=== PATIENT | female | born 1990 | race African-American/Black ===

== ENCOUNTER 2018-01-22 09:00 | Outpatient (RCR) | payer OTHER, SELFPAY ==
--- NOTE | 2018-01-22 09:00 | BH.SGPN.GN ---
Behaviors/Verbalizations/Mental Status: []Client alert and oriented, casual dress. Eye contact good. Motor activity appropriate. Speech soft. Affect flat, mood anxious, dysthymic. Thoughts linear, logical, no signs of hallucinations or delusions. Client completed the DSM-5 cross-cutting measure and did not complete the daily symptom tracker. No risks noted for suicidal ideation, plan, or intent at this time. Client Response/Progress/Benefit: []Client responded well to session, receptive to emotional support and encouragement from peers. Client reports feeling ?overwhelmed? today as it is her first session in IOP. Client shared she has been struggling with mental health since age 14. Client reported she has been diagnosed with PTSD, depression, and borderline personality disorder. Client identified her goals for IOP as learning how to ?not be like this...I want to be able to function.? Client reported she is currently depressed, drinking, and having a hard time taking care of her self and her son. Client received supportive statements from peers which she appeared to benefit from. Client to start IOP to prevent decompensation and increase mood stability.
--- NOTE | 2018-01-22 09:30 | BH.COMM ---
Communication Note - Communication with Client Communication Note: Met with pt to complete intial paperwork for IOP level of care. No significant changes since preadmission screening. Denies any suicidal ideations, plan, or intent. No mai or psychosis noted. No risks or concerns noted.
--- NOTE | 2018-01-22 10:12 | BH.SGPN.GN ---
Behaviors/Verbalizations/Mental Status: []Client alert and oriented, casually dressed and groomed. Eye contact good. Motor activity appropriate, restless. Speech within normal limits. Affect congruent, mood agitated, dysthymic. Thoughts linear, logical, no signs of hallucinations or delusions. Client Response/Progress/Benefit: []Pt was an active participant in discussion and activity, however struggled with remaining on topic and requiring redirection on occasion. Group worked together to come up with common negative forces in their lives which can hold them back from growth. Negative forces included: mental illness, negative thoughts, toxic people, and too many responsibilities. Group then worked together to identify common positive forces which help us grow. These included: Healthy coping skills, positive support, self-care, positive self-talk and asking for help/IOP tx. Pt reported agreeing with other?s definitions of personal growth. Shared that growth is something she feels she has struggled with due to limited supports. Pt was attentive during psychoeducation on the importance of utilizing many aspects of positive forces to help one grow. Benefited from group with increased insight and awareness on the impact of negative and positive forces on mental wellness. Progress limited due t pt inconsistent attentiveness and difficulties in applying materials outside tx environment. Recommended continued tx to reduce mental health sx severity, increase positive change behaviors, and prevent decompensation. Narrative Note: []
--- NOTE | 2018-01-24 08:39 | BH.MTP ---
[facility] - Patient Information Program Physician:: Genie Donahue Primary Therapist:: MALINDA Berrios - Psychiatric Diagnoses Psychiatric Diagnoses:: Major depressive disorder recurrent severe F 33.2. Anxiety unspecified. PTSD. Borderline personality disorder. Alcohol use disorder. Cannabis use. Nicotine use Diagnosis Code(s):: F 33.2 - Estimated LOS Estimated LOS (in weeks):: 6
--- NOTE | 2018-01-24 10:18 | BH.SGPN.GN ---
Behaviors/Verbalizations/Mental Status: []Client alert and oriented, dress casual. Eye contact fair. Motor activity slowed- head on the table at times. Speech within normal limits. Affect flat, mood dysthymic, irritable. Thoughts linear, logical, no signs of hallucinations or delusions. Client Response/Progress/Benefit: []Client responded well to session, quiet, but providing insight at times. Client appeared to connect with the quote sharing, ?sometimes we think we say things to people, but it doesn?t come out that way.? Client discussed the different types of communication styles and helped the group identify pros and cons of each. Client reports she often uses aggressive or passive aggressive communication in her relationships which gets her needs met in the moment, but negatively impact client later. Client appeared to benefit from gaining insight to how her communication style impacts mental health. Client to continue IOP to prevent decompensation and increase mood stability.
--- NOTE | 2018-01-24 11:20 | BH.SGPN.GN ---
Behaviors/Verbalizations/Mental Status: []Client alert and oriented, casually dressed. Eye contact good. Motor activity appropriate. Speech within normal limits. Affect congruent- appearing irritated as shown by her eye contact towards a peer, mood irritated and euthymic. Thoughts linear, logical, no signs of hallucinations or delusions. Client Response/Progress/Benefit: [] client responded well to session, volunteering to participate. Client used assertive communication in the activity by asking clarifying questions and voicing barriers. Client stated the activity reminded client of her daily life and how difficult it is to communicate when one does not have all the information. Client able to manage emotions when a peer was directing instigating comments towards client. Client helped the group identify strategies to improve communication. Client?s goal for the week is to ?not shut down or freak out? as a way to improve communication. Client appeared to benefit from practicing assertive communication and identifying a goal.
--- NOTE | 2018-01-24 14:55 | BH.MDN ---
Multi-Disciplinary Note - Note 45-min Individual Time Started:: 12:30 Date: 01/24/18 Purpose of session/treatment goals addressed:: The purpose of this session was to follow-up with Client regarding concerns presented during process session. Another purpose was to assess for current risk and lethality as well as establish a Safety Plan until Monday when Client is to return to IOP group. Eye Contact:: Good, Other - tearful throughout discussion Motor Activity:: Appropriate Appearance:: Casual Speech:: Appropriate Mood:: Anxious, Depressed - remorseful Affect:: Congruent Thoughts:: Linear, Logical, No evidence of hallucinations/delusions noted Staff Interventions:: Therapist asked open-ended questions to elicit additional information regarding concerns and unhealthy behaviors that Client indicated engaging in the previous night. Therapist used reflective listening and empathic statements to work with Client on processing and identifying potential triggers, contributing factors, and consequences of Client unhealthy coping on mental health. Provided psychoeducation regarding alcohol use and management of mental health sx. Used motivational interviewing to identify current barriers and promote change talk. Assessed lethality and developed plan to maintain safety. Client Response:: Client receptive of meeting with this therapist following IOP group on this date. She was willing and open to discussing current thoughts and concerns regarding the events client indicated taking place previous night. Client discussed having awoken this morning in a really good mood until being confronted by her significant other whom indicated client had engaged in several high risk behaviors on the previous night. Client denied any recollection of the events as described; however, indicated not being surprised she had engaged in such high risk behaviors and tearfully expressed remorse regarding her actions. Client went on to describe remembering that she had been drinking from a box of wine with her significant other as he had just moved back in the day before. She discussed knowing she had drank to the point of blacking out and remembers asking him to cut me off from drinking at various points but not listening when he had done so. Client reports being told that she had become distraught and began expressing thoughts of being a burden and wanting to put everyone out of their misery which resulted in client consuming a bottle of pills. Upon further assessment client identified the pills as being her Prozac medication and was not certain as to how many pills she had actually consumed. Client denies knowing if medication consumption had been associated with suicide intent at the time of ingestion. Client further explained that her significant other had ensured that client emptied contents of her stomach by puking immediately following consumption. Client denies experiencing any physical symptoms associated with medication consumption at present, outside of a sore throat. Therapist consulted with program nurse regarding excess medication use and CLient encouraged to seek medical care to follow-up and ensure medically cleared. Client denies willingness to do so at this time; however, was agreeable to seek medical care at the nearest E.R[facility] should she experience any symptoms throughout the day. CLient went on to report a hx of previous suicide attempts and increased ideation while under the influence of alcohol and often does not remember her behaviors the next day. Client indicates she does not actually want to and denies any active suicidal idenation, plan, or intent as of this date, 01/24/18 She descibes her son and significant other as largest protective factors, indicating I can't do that, I have my son. Client further expressed an ability to maintain safety at this time and indicates that her significant other will be with her to ensure safety as well. CLient receptive of removing all potentially lethal materials in the house and shared that she had removed all alcohol from her home this morning. She was agreeable to having her significant other remove any excess medications and dispose of the at the local police dept. Client to follow-up with this therapist upon doing so on this date and is agreeable to a safety and wellness check should she not follow-up by 3pm on this date. Client and therapist discussed impact of substance use on ability to manage mental health sx and maintain safety. Client reports understanding that her alcohol consumption has been an ongoing problem and discussed beliefs that it has been further exacerbating symptoms of depression as well as ability to function at baseline. Client reports a desire to quit drinking and expressed wanting to set a positive example for her son by maintaining sobriety. Client worked with therapist on discussing potential consequences for her own health and that of her family if she does not deal with her current use. Therapist further assessed extent of client current consumption and reviewed with client risks of withdrawl if she does not detox safely. CLient reports understanding of risks associated however declined any referral resources for inpatient detox and addiction treatment. CLient open to completing a sobriety and safety plan until next scheduled session on Monday. Client reports plans to communicate current safety plan and spend the remainder of the day with her significant other. She shared that she plans to spend time painting and completing a [employer] project that she has been working on. Client discussed the evening as her highest risk period for drinking and shared plans to spend time with significant other as well as work on specific crafts and give her keys to significant other to prevet purchasing any alcohol. She is aware of and willing to utilize the local crisis resources available should she no longer feel able to maintain safety. Risks/Concerns:: Client describes having a recent suicide gesture previous night as she indicates consuming large amounts of alcohol and taking an undetermined amount of Prozac medication. Client reports not knowing if she had been actively suicidal at the time but has a history of suicide attempts and ideation when under the influence. Client urged to seek medical treatment to ensure no adverse side effects to taking assess medication however declined at this time. Reports willingness to seek medical attention should she experience any increase in physical symptoms.. Denies current suicidal thoughts, plan or intention to date, 01/24/2018. Client additionally given referral information for inpatient alcohol addiction and detox sessions. Client additionally denies need for such at this time and indicates wanting to work on sobriety on an outpatient basis. Client reports willingness to seek medical treatment should she experience any withdrawal symptoms and further indicates an understanding of the risks associated with alcohol withdrawal. Client indicates an ability to maintain safety at this time and is aware of and willing to utilize local crisis resources available. Client reports willingness to remove all excess medication in the home and follow-up with this therapist upon doing so. Therapist will continue to assess lethality to ensure pt can maintain safety. Progress Toward Goals/Plan:: No progress observed given this is client's second day in IOP. Session focused on identifying risks, discussing motivations to change, assessing for lethality, and creating safety plan. Client to continue IOP treatment at this time and will be monitored for ongoing risk and safety to continued to determine appropriate level of care. Time Stopped:: 13:16
--- NOTE | 2018-01-24 17:44 | BH.COMM ---
Communication Note - Communication with Client Communication Note: Client called to report that she had followed through with plan to remove all excess medication from her home. She indicated that her significant other had taken them to the local police dept. for proper displosal. Client again ensures ability to maintain safety and denies any active suicidal ideation, plan, or intent. Client to follow-up tomorrow morning to ensure safety and discuss review safety plan.
--- NOTE | 2018-01-25 14:40 | BH.COMM_ITS ---
Communication Note - Communication with Client Communication Note: Client called this therapist to check-in and review her safety plan as well as discuss strategies used to maintain safety and sobriety previous night. CLient reports that following her plan to communicate with her significant other (s/o) what she had discussed during session on previous date as well as using healthy distractions to keep her mind off of drinking had been most helpful. CLient indicated that she had gone to the [employer] with her s/o to celebrate one day sober which had helped client to continue to feel motivated to make progress. Client further indicated that she and her s/o had met with her individual outpatient therapist to begin developing a plan for improving their ability to communicate and for client to continue to make progress in better managing her mental health symptoms as well as maintaining sobriety. CLient denies active si, plan, or intent as of 01/25/17, reports an ability to continue to maintain safety, and is future oriented as she plans to attend IOP group tomorrow as well as has plans to go miniature golfing with afterwards. Client to meet with program psychiatrist on following date, 01/26/18
--- NOTE | 2018-01-26 09:05 | BH.SGPN.GN ---
Behaviors/Verbalizations/Mental Status: Client maintained positive and consistent eye contact throughout. She was casually and comfortably dressed-wearing lounge type clothing, appropriate grooming, motor activity WNL slight restlessness AEB readjusting in seat and fidgeting with items in her hands, speech normal rate and tone, mood euthymic and anxious, affect congruent with mood, thoughts linear and logical some evidence of ruminative nature regarding maintaining sobriety and relationship with significant other, no evidence of delusions or hallucinations. Therapist reviewed client?s symptom tracker to assess for intensity of mental health symptoms and identify risk for suicide. Minimal sign of suicidal ideation (05/05), with no plan, and minimal intent (05/05) to date. Individual therapist will reassess risk and safety plan for weekend following group on this date. Client Response/Progress/Benefit: Client receptive of session and was engaged throughout. She did well to openly share her own thoughts and feelings regarding current progress and adjustment to the group, as well as provide positive feedback to fellow participants. Client benefitted from reflecting upon ways she was able to remain sober since last attending group and indicated that identifying with other group members who are successfully maintaining sobriety was most beneficial. Client further expressed that taking the time to seek help and support has been a very positive and important step in her recovery as client was encouraged to discuss her needs and concerns with her significant other as well as create a concrete plan to use healthy distraction and prevent from being in a toxic environment. Recommended continued IOP tx to prevent decompensation and promote ongoing sobriety. Narrative Note: []
--- NOTE | 2018-01-26 10:50 | BH.NA ---
Physical Data - Vital Signs Temperature: 98.0 F Pulse Rate: 76 Respiratory Rate: 14 Blood Pressure: 116/70 - Height/Weight Height: 1.47 m Weight:: 58.967 kg Weight in Pounds: 130.0 lbs Current Medication Compliance - Medication Compliance Do you take your medication as prescribed?: No Do you need assistance with taking medication?: No Have you had side effects from medication?: No Nutritional History - Appetite Nutritional Instructions:: If client shows signs of a swallowing problem, weight change of 10 pounds or more in the last month, or is on a diabetic diet, the physician will review and request a dietitian consult, as appropriate. All unintentional weight loss will be referred to the physician for decision on need for dietitian consult. Describe your appetite:: Good Have you noticed a change in your eating habits lately?: Yes - increased with weight gain for approx 3 months Functional Assessment - Sleep Pattern Describe any problems with sleeping: Client endorses difficulty falling and staying asleep associated with rumination and nightmares. - Activities Motor Activity:: Functional Sensory/Communication Assess - Hearing Problems Do you have any hearing problems?: Adequate - Communication Problems Do you have difficulty understanding what people are saying?: No Do you have trouble putting your thoughts into words or expressing what you want to say?: No Do people ever have trouble understanding what you say?: No What is your primary language?: Macedonian Learning Assessment - Learning Barriers Learning Barriers:: Ready to learn Medical Problems/History - Pain Assessment Do you have acute or chronic pain?: Yes - Sexual History Are you sexually active? If so, what type of protection do you use?: Yes - Female Reproductive Do you think you may be ?: No Number of pregnancies:: 1 Number of children:: 1 Have you reached menopause?: No Do you have any history of breast disease?: No - Family History Family History: Family History (Last Updated 02/23/18 @ 15:17 by LAITH Benitez RN) Other Addiction CAD (coronary artery disease) Cancer Hypertension Surgical History - Surgical History Have you had any surgeries? If so, list type and date:: No Substance Abuse - Substance Abuse Please describe substance abuse in the last 30 days:: Client notes ETOH use 3 days ago - daily drinking of 1-2 bottles of wine daily. Tobacco use of 0.5 ppd. Daily marijuana use at bedtime. Mental Status Summary - Mental Status Significant Findings/Observations on Appearance and Mood:: Felisa is an A&Ox4 27-year-old female who is cooperative with interview. She is casually dressed with appropriate hygiene and grooming. Normal activity. Fair eye contact. Speech is clear and of normal rate and volume. Moderate anhedonia and mood congruent affect. Logical associations and normal process. Fair knowledge and insight. Impaired judgement. No symptoms of delusions. Denies hallucinations and HI. Denies current SI, but does have intermittent fleeting passive thoughts of . Suicide Assessment - Suicidal Ideation Are you currently or have you been suicidal in the past?: Yes Suicidal Intentional Rating Scale (SIRS): Suicidal thoughts (past) Physician Notification: If Active suicidal thoughts/Will not contract for safety is checked, contact physician and document in the Physician Notification section below. Past Psychiatric History - MH Treatment Hx Current providers for mental health treatment (counselor, psychiatrist, transplant case manager, etc.): [facility] Risk Assessment - Age Age: Less than 60 - Mental Status Mental Status: Willing & able to ask for assistance when needed - Physical Status Physical Status: No problems - Impairments Impairments: None - Elimination Elimination: Continent AND independent - Gait or Balance Gait or Balance: Walks independently - Hx of Falls History of falls in the past 6 months: No known history - Medications/Substances Psychotropics:: Antidepressants Medications/substances used within the past 24 hours or ordered to administer: 1-2 of the medications/substances listed above - Total Score Total Points:: 1 Physician Notification - Physician Notification Physician Notified: Erika Donahue Method of Notification: Face to Face Comments: treatment planning discussion and ETOH w/d Sx RN Summary of Impressions - Impressions Recommendations: Include psychiatric and medical issues, treatment planning recommendations, and discharge planning needs. Impressions: Psychiatric Issues: borderline personality d/o, PTSD, anxiety Impression: General Medical Conditions: fibromyalgia, arthritis? - Level of Care How do the client's current symptoms and functional deficits support need for this level of care?: Felisa reports progressive decline in her mental status for the past 2 years, but much worse since March 2017. She notes increased difficulty sleeping and increased appetite with weight gain. Client has been having panic attacks several times weekly. She isolates frequently and drink excessively (1-2 bottles of wine daily). Felisa describes stressors including family dynamics and a complicated relationship with a boyfriend. The client does have a history of SI by OD in 2010 and cutting behaviors in the past. She denies current SI or self-harm behavior.
--- NOTE | 2018-01-26 10:50 | BH.NOTE ---
: Inpatient Note - Notes Behavioral Health Inpatient Note: LATE ENTRY: During nursing assessment and interview, client disclosed that she took an unknown amount of Prozac with a bottle of wine on the evening of 01/23/18. She states that she does not recall the events leading up to this, or the event itself, because she blacked out; her account is based on what her friend told her happened that night. Client has stable VS, minor sweating, occasional tremors, intermittent nausea without vomiting, and no visual or auditory hallucinations. Felisa notes that up until 01/26/18 she has been drinking 1-2 bottles of wine every day. She continues to use marijuana daily at night. The client denies having SI or that this incident was a suicidal gesture, but she does not recall the events surrounding it. She does have a history of SA via intentional overdose in 2010. All of this was relayed to staff and Dr. Donahue, who also evaluated client the same day. JOSÉ DonN, RN
--- NOTE | 2018-01-26 11:25 | BH.SGPN.GN ---
Behaviors/Verbalizations/Mental Status: Pt alert and oriented, eye contact good, casually dressed, motor activity appropriate, speech and tone WNL, mood dysthymic, affect congruent, no evidence of delusions or hallucinations. Client Response/Progress/Benefit: Pt contributed to discussion and listened attentively to others. Pt identified her SMART goal to be: I will not drink alcohol for the next 7 days. Pt reported her barriers to include: negative people, being around alcohol, and self-doubt. Pt shared potential solutions to these barriers to be setting boundaries with toxic people and keeping self busy. Pt reported it will benefit her to stop drinking alcohol because she will feel healthy both physically and mentally. Pt recognizes her alcohol use is a way of self-medicating is not helping her more forward in life. Pt seemed to benefit from identifying a short term SMART goal that will help her move forward. Pt to continue IOP level of care to stabilize moods, maintain safety and prevent decompensation.
--- NOTE | 2018-01-26 12:48 | PCM.HP.BLA ---
History and Physical Finding information Patient is a 27-year-old female who presents to the hospital for behavioral medicine medicine [facility] with chief complaint of depression, PTSD and borderline personality disorder. History is been obtained per interview with patient, discussion with staff, review of chart. Case discussed with treatment team. History of present illness Patient is a 27-year-old female [facility] medicine [facility] for evaluation and treatment of depression and anxiety. Patient has had worsening depression and anxiety through the summer resulting in difficulty with self-care and difficulty caring for her 9-year-old son. Parents are helping to care for her son. Her symptoms are exacerbated by ingestion of alcohol averaging 2-2-1/2 bottles of wine per night. On Monday she was drinking and ingested excess Prozac while she was with her boyfriend. She states that she blacked out and does not remember. She endorses depressions with feelings of sadness decreased energy and difficulty enjoying activities. She reports that when she drinks she has thoughts of suicide. She denies suicidal thoughts when sober. She denies suicide plan or intent. Feels able to maintain safety. Denies homicidal ideation. Denies hallucinations or symptoms consistent with psychosis. She reports ruminative anxiety about multiple issues. She has panic attacks associated with drinking alcohol. She denies obsessions or compulsions. She denies history consistent with a discrete episode of mai during periods of sobriety. She reports her appetite is variable. She does have history of bulimia at age 13-20 at which time she would binge and purge. Denies laxative or diet pill use. Her sleep is sporadic. She has history of multiple traumas and symptoms consistent with PTSD including intrusive traumatic memories, avoidance and hypervigilance. Reports history of emotional dysregulation and self-harm behaviors including cutting consistent with borderline personality disorder. Past psychiatric history Previous diagnosis of depression, PTSD, borderline personality disorder. She has had 2 previous inpatient psychiatric hospitalizations. The first in [place] at age 20 due to an overdose with suicide intent. The second in [place] at age 23 for depression with suicidal thoughts. She has struggled with cutting since age 13. She last cut a month and a half ago. She sees Dr. Long for her outpatient psychiatric care. She sees [facility] for individual therapy. Substance use history Reports consuming 1 box of wine every 3 days over the past 3 years. She thinks this would average to 2-2-1/2 bottles of wine per night. Her last drink was 3 days ago. No evidence of withdrawal. She smokes 1/2 pack of cigarettes daily. She has been using cannabis daily. She used occasional cocaine but last use was 1 year ago. Past medical history Fibromyalgia Arthritis Concussion at age 14 due to gymnastics Denies history of seizure -denies current . Implant control Review of symptoms No fevers chills nausea vomiting chest pain dyspnea. All other systems reviewed and negative Allergies-no known medical allergies. Complained of environmental seasonal allergies. Allergies to watermelon, nuts, beer and hard cider Current medications Prozac 20 mg daily Ayala Telex 10 mg daily-N process of cross titration Xanax 1 mg as needed anxiety control implant Family medical psychiatric history Mother -history of chemical dependency borderline personality disorder Father in 2005 and had issues. 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 She was raised by her grandparents and bounced around a lot. She has a maternal half brother who is currently age 5. She has a stepsister currently age 9. She attended a [employer] school until age 17 when she was shunt because she got . She graduated from [employer] in [place]. She attended college at [employer] and is only a few classes shy of an associates degree in psychology. She recently worked at the [facility] violence [employer] for a month. She is currently unemployed due to erratic sleep patterns and unreliable behavior because of alcohol use. She is in the process of reuniting with her ex-boyfriend who is supportive. She currently lives on her own. Her parents provide financial support. She has a son age 9 who lives with her parents. Legal history To past CAROL charges (2015 and 2016) Mental status exam Vital signs reviewed per nursing database and discussed with nursing. Alert and oriented . No acute distress. Ambulatory with normal gait and station. Appears stated age. Casually dressed and groomed. Appropriate hygiene. Cooperative with interview. Good eye contact. No psychomotor agitation or retardation. Mood depressed. Affect congruent. Speech is clear and with regular rate and rhythm. Language fluent. Thought process organized. Associations logical. Thought content significant for ruminative anxiety and themes of depression. No suicidal or homicidal ideation related or detected.. No symptoms consistent with psychosis noted or detected. Immediate recent and remote memory grossly intact. Attention and concentration are fair. Estimated intelligence and fund of knowledge average. Judgment and insight fair. Labs and testing Lab work will be requested from primary care physician. Further lab work will be obtained as needed. Diagnosis Major depressive disorder recurrent severe F 33.2 Anxiety unspecified PTSD Borderline personality disorder Alcohol use disorder Cannabis use Nicotine use Plan Admit to IOP as the structured setting is necessary to prevent decompensation. Risk-benefit alternative of medications discussed with patient. Patient acknowledges understanding. Continue Prozac 20 mg daily. Continue Ayala Telex 10 mg daily. Start gabapentin 300 mg p.o. nightly to assist with sleep regulation, fibromyalgia pain and alcohol urges. Encouraged to take a vitamin containing thiamine and folate. Prescription provided for thiamine 100 mg p.o. daily. Dispense #7 with 0 refills. Encouraged to attend AA. Alcohol and cannabis abstinence encouraged. Nicotine cessation encouraged. Encouraged to establish outpatient follow-up with Dr. Long and Ashley. Patient acknowledges understanding and is in agreement with plan. Feels able to maintain safety. Agrees to seek help or emergency care if feeling unsafe to self or others.
--- NOTE | 2018-01-26 13:02 | HP.PCM_ITS ---
History and Physical Finding information Patient is a 27-year-old female who presents to the [facility] medicine [facility] with chief complaint of depression, PTSD and borderline personality disorder. History is been obtained per interview with patient, discussion with staff, review of chart. Case discussed with treatment team. History of present illness Patient is a 27-year-old female referred by individual therapist Ashley from [facility] to the behavioral medicine [facility] for evaluation and treatment of depression and anxiety. Patient has had worsening depression and anxiety through the summer resulting in difficulty with self-care and difficulty caring for her 9-year-old son. Parents are helping to care for her son. Her symptoms are exacerbated by ingestion of alcohol averaging 2-2-1/2 bottles of wine per night. On Monday she was drinking and ingested excess Prozac while she was with her boyfriend. She states that she blacked out and does not remember. She endorses depressions with feelings of sadness decreased energy and difficulty enjoying activities. She reports that when she drinks she has thoughts of suicide. She denies suicidal thoughts when sober. She denies suicide plan or intent. Feels able to maintain safety. Denies homicidal ideation. Denies hallucinations or symptoms consistent with psychosis. She reports ruminative anxiety about multiple issues. She has panic attacks associated with drinking alcohol. She denies obsessions or compulsions. She denies history consistent with a discrete episode of mai during periods of sobriety. She reports her appetite is variable. She does have history of bulimia at age 13-20 at which time she would binge and purge. Denies laxative or diet pill use. Her sleep is sporadic. She has history of multiple traumas and symptoms consistent with PTSD including intrusive traumatic memories, avoidance and hypervigilance. Reports history of emotional dysregulation and self-harm behaviors including cutting consistent with borderline personality disorder. Past psychiatric history Previous diagnosis of depression, PTSD, borderline personality disorder. She has had 2 previous inpatient psychiatric hospitalizations. The first in [place] at age 20 due to an overdose with suicide intent. The second in [place] at age 23 for depression with suicidal thoughts. She has struggled with cutting since age 13. She last cut a month and a half ago. She sees Dr. Long for her outpatient psychiatric care. She sees Ashley at [facility] for individual therapy. Substance use history Reports consuming 1 box of wine every 3 days over the past 3 years. She thinks this would average to 2-2-1/2 bottles of wine per night. Her last drink was 3 days ago. No evidence of withdrawal. She smokes 1/2 pack of cigarettes daily. She has been using cannabis daily. She used occasional cocaine but last use was 1 year ago. Past medical history Fibromyalgia Arthritis Concussion at age 14 due to gymnastics Denies history of seizure -denies current . Implant control Review of symptoms No fevers chills nausea vomiting chest pain dyspnea. All other systems reviewed and negative Allergies-no known medical allergies. Complained of environmental seasonal allergies. Allergies to watermelon, nuts, beer and hard cider Current medications Prozac 20 mg daily Ayala Telex 10 mg daily-N process of cross titration Xanax 1 mg as needed anxiety control implant Family medical psychiatric history Mother -history of chemical dependency borderline personality disorder Father in 2005 and had issues. 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 She was raised by her grandparents and bounced around a lot. She has a maternal half brother who is currently age 5. She has a stepsister currently age 9. She attended a [employer] school until age 17 when she was shunt because she got . She graduated from [employer] in [place]. She attended college at [employer] and is only a few classes shy of an associates degree in psychology. She recently worked at the [employer] for a month. She is currently unemployed due to erratic sleep patterns and unreliable behavior because of alcohol use. She is in the process of reuniting with her ex-boyfriend who is supportive. She currently lives on her own. Her parents provide financial support. She has a son age 9 who lives with her parents. Legal history To past CAR[facility] charges (2015 and 2016) Mental status exam Vital signs reviewed per nursing database and discussed with nursing. Alert and oriented . No acute distress. Ambulatory with normal gait and station. Appears stated age. Casually dressed and groomed. Appropriate hygiene. Cooperative with interview. Good eye contact. No psychomotor agitation or retardation. Mood depressed. Affect congruent. Speech is clear and with regular rate and rhythm. Language fluent. Thought process organized. Associations logical. Thought content significant for ruminative anxiety and themes of depression. No suicidal or homicidal ideation related or detected.. No symptoms consistent with psychosis noted or detected. Immediate recent and remote memory grossly intact. Attention and concentration are fair. Estimated intelligence and fund of knowledge average. Judgment and insight fair. Labs and testing Lab work will be requested from primary care physician. Further lab work will be obtained as needed. Diagnosis Major depressive disorder recurrent severe F 33.2 Anxiety unspecified PTSD Borderline personality disorder Alcohol use disorder Cannabis use Nicotine use Plan Admit to IOP as the structured setting is necessary to prevent decompensation. Risk-benefit alternative of medications discussed with patient. Patient ack nowledges understanding. Continue Prozac 20 mg daily. Continue Ayala Telex 10 mg daily. Start gabapentin 300 mg p.o. nightly to assist with sleep regulation, fibromyalgia pain and alcohol urges. Encouraged to take a vitamin containing thiamine and folate. Prescription provided for thiamine 100 mg p.o. daily. Dispense #7 with 0 refills. Encouraged to attend AA. Alcohol and cannabis abstinence encouraged. Nicotine cessation encouraged. Encouraged to establish outpatient follow-up with Dr. Long and Ashley. Patient acknowledges understanding and is in agreement with plan. Feels able to maintain safety. Agrees to seek help or emergency care if feeling unsafe to self or others.
--- NOTE | 2018-01-26 13:04 | BH.DR.ITP ---
Initial Treatment Plan - Patient Information Visit Information: ADMISSION DATE: EXPECTED LOS: 4-6 weeks Diagnoses:: Major depressive disorder F 33.2 - Problems/Symptoms Problem #1:: Depression Symptom:: Sad mood, decreased energy, intermittent suicidal thoughts, biologic disruption of sleep and appetite Problem #2:: Anxiety Symptom:: Rumination, intrusive traumatic memories Symptom:: Emotional dysregulation Problem #3:: Substance use
--- NOTE | 2018-01-26 15:36 | BH.MDN ---
Multi-Disciplinary Note - Note 30-min Individual Time Started:: 12:09 Date: 01/26/18 Time Stopped:: 12:44
--- NOTE | 2018-01-26 15:46 | BH.COMM_ITS ---
Communication Note - Communication with Client Communication Note: Therapist spoke with client outpatient therapist for c oordination of care and treatment goal setting purposes. Therapist recieved updates regardng client recent family session at the outpatient level.
--- NOTE | 2018-02-08 16:20 | BH.DS_ITS ---
Discharge Summary - Demographics Date of Admission:: 01/22/18 Discharge Date: 02/07/18 Presenting Problems at Admission:: Client is 27-year-old female with a history of major depressive disorder, PTSD, anxiety, and borderline personality disorder. She reports to IOP program following referral from outpatient therapist, Ashley Hall at [facility], due to worsening depression, passive SI, and panic attacks. At time of admission client endorses symptoms insistent with depression including erratic sleep, decreased appetite, lack of energy, lack of motivation, hopelessness, worthlessness, and passive thoughts of . Client denies any active suicidal ideations, plan, or intent at time of intake. Client has history of one previous suicide attempt via overdose in 2010. History of self-injurious behaviors via cutting as a means for coping. Client additionally endorses racing thoughts and increased anxiety leading to increased panic attacks. Client reports increased familial stress and use of unhealthy means of coping via daily alcohol consumption at time of admission. Discharge Diagnoses:: Major depressive disorder recurrent severe F 33.2. Anxiety unspecified. PTSD. Borderline personality disorder. Alcohol use disorder. Cannabis use. Nicotine use Reason for Discharge:: Client to discharge from IOP program following recommendation from treatment team and Client outpatient provider regarding concerns associated with Client current alcohol use which has been observed as impeding ability to progress in meeting IOP tx goals and better manage mental health sx. Client currently meets criteria for Alcohol Use Disorder, Severe, AEB Client meeting at least 8/11 criteria. Since beginning IOP program it has been observed and reported that Client current alcohol use has interfered with treatment progress. At this time it has been determined that Client would be more appropriate for a dual diagnosis, substance use specific IOP treatment program. Client has been given referral resources for mental health and substance use specific treatment options in her area including [facility], and [facility]. - Treatment Progress During Treatment & Response: Client progress is limited and mostly inconsistent throughout duration of IOP tx. Client difficulties in maintaining sobriety, ongoing issues with high risk behaviors while under the influence of substances, and lack of motivation were contributing factors in her struggles to make consistent progress towards treatment goals. Client had two cancellations in the 2 weeks she was admitted to the IOP program, one of which client indicated was due to suffering from the after effects of previous alcohol consumption. While in attendance, Client engagement and contribution remained variable. Within the individual treatment setting, Client appeared to be actively engaged in the treatment process and able to identify current barriers to improving client overall mental health and wellness. Client identified the impact of current toxic relationships, self-sabotage behaviors, and use of unhealthy coping mechanisms on her self-esteem, motivation and belief she can improve mental health and well being, as well as ability to function at baseline. Despite high levels of insight regarding how her thoughts, behaviors, and relationships impact mental health, Client struggled significantly in working towards maintaining sobriety, implementing healthy boundaries, and use of emotion regulation and coping skills identified during times of distress or when experiencing urges to drink. When in the group setting, Client engagement and contribution was often inconsistent. She was often able to provide positive feedback and contribute to the group discussion; however, on various other occasions was distracted by her own thoughts or items in the room and would often distract other participants due to such. Additionally, Client often provided feedback that was sarcastic or dismissive of materials and at times would detract from the discussion impacting both her and others ability to retain group information. Issues Still to be Addressed:: Client could benefit from continuing to build healthy skills to stabilize moods and have healthy outlets for her emotions. Client could also benefit from further working to address her use of unhealthy means for coping as well as her tendency to return to toxic relationships. Client could also benefit from identifying and challenging negative self-talk messages. Discharge Recommendations/Instructions:: Client recommended to follow-up with referral to dual diagnosis, substance use specific IOP treatment. Client has been given referral resources for mental health and substance use specific treatment options in her area including [facility], [facility], and [facility]. Client is additionally recommended to continue with outpatient treatment on an individual basis at [facility] with Ashley Hall. Client would benefit from attending AA meetings as well as becoming involved in healthy group extracurricular activities such as yoga, and art class, or a workplace readiness program to aid client in finding healthy distractions and limiting urges to drink. Client denies wanting to pursue substance use specific treatment at this time; however, indicates willingness to continue to follow up with individual outpatient provider and is willing to continue to consider dual diagnosis specific IOP treatment services. Client would additionally benefit from PTSD specific treatment following maintenance of sobriety from substances on a consistent basis. Discharge Handout: Complete Discharge Handout with client on aftercare options and continuity of care.
[2018-02-23 15:45] VITALS: BP 116/70; PULSE 76; RESP 14; TEMP 36.7
== END 2018-01-28 23:59 ==
LOC: BHIOP 09:00
PROVIDERS: Visit Provider Psychiatry & Neurology Psychiatry
DX: F33.2 Major depressive disorder, recurrent severe without psychotic features (principal); F41.9 Anxiety disorder, unspecified; F43.10 Post-traumatic stress disorder, unspecified; F60.3 Borderline personality disorder; F10.20 Alcohol dependence, uncomplicated; F12.90 Cannabis use, unspecified, uncomplicated; M79.7 Fibromyalgia; M19.90 Unspecified osteoarthritis, unspecified site; F17.210 Nicotine dependence, cigarettes, uncomplicated
CPT/HCPCS: H0035; 90832; 90834; 90853

== ENCOUNTER 2018-01-29 09:00 | Outpatient (RCR) | payer OTHER, SELFPAY ==
--- NOTE | 2018-01-29 09:10 | BH.SGPN.GN ---
Behaviors/Verbalizations/Mental Status: [] Pt eye contact fair, casually dressed, motor activity restless, rapid speech and rambling, mood anxious and agitated, congruent affect, thoughts tangential, no evidence of delusions or hallucinations. Reviewed client?s symptom tracker client indicated a 2 out of 5 for thoughts of suicide and the 0 out of 5 for intent to kill self. Informed client's IOP therapist of client's SI. Client Response/Progress/Benefit: [] Client reported positive no she has been sober for 6 days is the longest in 3 years. Client shared she is feeling extremely stressed out because her mom called her a piece shared it for not being able to have her own son live with her right now. Client reported she is not feel stable enough to have her 9-year-old son stay with her because she does not want to expose her son to any more negative client shared her ex-boyfriend is staying with her and is helping her maintain sobriety. Client reported she recognizes she is engaging in unhealthy behavior by responding to a different ex-boyfriend whom she knows is not healthy for her. Client reports she is also having panic attacks in public which is something she has not experienced in a very long time. Client appeared scattered and identified her thoughts are everywhere. It is unclear if client's recent sobriety is contributing to increased agitation and disorganization. Client seemed to benefit from support from peers. Client to continue IOP level of care to stabilize moods, increased healthy coping, and prevent decompensation. Narrative Note: []
--- NOTE | 2018-01-29 10:23 | BH.SGPN.GN ---
Behaviors/Verbalizations/Mental Status: [Client maintained fair eye contact throughout often looking around room, others, or coloring pages she was working on. She was casually dressed in lounge clothing and showered, disheveled AEB clothing rolled and ill fitting, motor activity restless/erratic difficulty sitting still, bouncing leg, fidgeting, scratching and hitting head with palm, speech pressured, mood agitated, irritable, dysthymic, affect labile. Client appearing to have a flight of ideas AEB loose associations and frequent shifts in topic, no evidence of delusions or hallucinations.] Client Response/Progress/Benefit: [Client receptive of session and a willing participant throughout. She was engaged in the discussion regarding failure and famous examples of failure; however, at times providing feedback that was dismissive, contrary, or sarcastic in nature which appeared to detract from other?s ability to connect with content discussed and further contribute to client pessimistic mood. Client benefitted from being challenged by the group to manage or cope with failures and potential setbacks. Client progress limited on this date as she continued to struggle with challenging negative self-talk and distorted thoughts that were preoccupying her; however, did well to improve use of self-regulation strategies AEB client utilizing coloring items to decrease restlessness and increase attention to group materials. Client able to identify fears of failing to continue to use healthy means for coping and not relying on alcohol or other high-risk behaviors. Recommended continued IOP tx to further work on addressing high risk behaviors and identifying alternative means for coping.] Narrative Note: []
--- NOTE | 2018-01-29 11:25 | BH.SGPN.GN ---
Behaviors/Verbalizations/Mental Status: [Client maintained poor, inconsistent eye contact throughout often looking around room, at others, or closing eyes. Appeared disheveled - She was casually dressed in lounge clothing and showered, motor activity restless/erratic moving around the room sporadically, laying down and rolling on floor, bouncing leg, fidgeting, scratching and hitting head with palm, twisting clothing in hands, speech pressured, mood agitated, irritable, dysthymic, affect labile. Client appearing to have a flight of ideas AEB use of loose associations and frequent shifts in topic, preoccupied with own thoughts, no evidence of delusions or hallucinations.] Client Response/Progress/Benefit: [Client again was willing to engage in session and participated throughout. She was initially negative towards engaging in the activity portion however became increasingly willing to participate as fellow participants encouraged her and participated in the group as well. At various points throughout client struggled significantly with maintaining patient and focused, often interrupting others or taking additional turns in the activity prior to others having a chance to complete a turn. Client did however display progress in her ability to identify how her behaviors and negative mindset may have impacted her own focus and the focus of others. She benefitted from identifying connections between her desire to take control and butts things in the activity with a similar desire to remain in control or butts to complete something in her own life. Client identified that this may be a contributing factor to her urges to self-sabotage and expressed a goal of focusing more on small steps rather than doing everything all at once.] Narrative Note: []
--- NOTE | 2018-01-29 15:08 | BH.MDN ---
Multi-Disciplinary Note - Note 30-min Individual Time Started:: 12:20 Date: 01/29/18 Time Stopped:: 12:54
--- NOTE | 2018-01-31 09:05 | BH.SGPN.GN ---
Behaviors/Verbalizations/Mental Status: []Client alert and oriented, dress casual. Eye contact intense. Motor activity restless. Speech loud, rapid, circumstantial. Affect incongruent AEB smiling but reporting anxious and irritable. Mood anxious, irritable. Thoughts appeared scattered and lose association, client had a hard time staying on topic. no signs of hallucinations or delusions. Reviewed client?s symptom tracker client marked a 2 out 5 for thoughts of suicide, but a zero for intent as of 01/31/18. Therapist communicated with client's individual therapist regarding recent relapse and suicidal thoughts. Client Response/Progress/Benefit: []Client responded somewhat well to session, appearing agitated at times. Client reported feeling ?all over the place? today due to multiple stressors. Client shared she relapsed and drank last night and that her boyfriend left her this morning. Client reported the relationship was ?probably not healthy anyway.? Client stated she was triggered to drink due to relationship stress. Client shared she plans to ?just get drunk again today since I already drank.? Client was somewhat receptive to the group?s gentle challenging on all or nothing thinking and self-sabotage. Client able to recognize that relapse is part of recovery and was open to establishing a no drinking plan with her individual therapist today. Client?s progress variable as she reports difficulty managing interpersonal relationships and regulating emotions without drinking or other unhealthy coping skills. Client to continue IOP to prevent decompensation and increase mood stability.
--- NOTE | 2018-01-31 15:14 | BH.MDN ---
Multi-Disciplinary Note - Note 30-min Individual Time Started:: 12:16 Date: 01/31/18 Time Stopped:: 12:48
--- NOTE | 2018-02-03 08:46 | BH.COMM ---
Communication Note - Communication with Client Communication Note: Client called this morning to cancel group for this date. Therapist returned this client phone call and attempted to follow-up. CLient discussed experiencing another relapse as she had drank alcohol on the previous date. She spoke at length with this therapist regarding the difficultes of working on her mental health when actively using, as well as discussed the consequences her use has had on client relationships and ability to function at baseline or complete daily responsibilities. CLient expressed understanding of the harmful impact alcohol abuse has had on her mental health. She indicated a desire to schedule a family session with her significant other to discuss ways to best support client and potential alcohol treatment options. Session scheduled for Monday02/05/18.
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
--- NOTE | 2018-02-05 10:30 | BH.SGPN.GN ---
Behaviors/Verbalizations/Mental Status: []Client alert and oriented, dress casual, hygiene good. Eye contact fair. Motor activity restless, braiding throughout session. Speech loud, rapid, loose associations, inappropriate language and phrases. Affect congruent with mood, mood erratic. Thoughts linear, logical, no signs of hallucinations or delusions. Client Response/Progress/Benefit: []Client responded well to session, active participant, but sharing inappropriate, off topic remarks throughout session. Client reported one can have external conflict and internal conflict. Client identified barriers to resolving conflict such as mental health, negative people, and self-sabotage. Client helped the group discuss the four different conflict resolution styles including when it is helpful and not helpful to use each style. Client shared ?I?m definitely a shark? which is the competing type. Client reported she likes being a shark because others listen to her. Client appeared to lack insight to the negative effects of only using the competing style. Client appeared to benefit from learning about the pros and cons of each conflict resolution style. Client progress variable as she reports lack of implementation of healthy coping skills and self-reports self-sabotaging behaviors that keep client stuck.
--- NOTE | 2018-02-05 11:35 | BH.SGPN.GN ---
Behaviors/Verbalizations/Mental Status: []Client alert and oriented, dress disheveled. Eye contact good. Motor activity restless, moving standing up and moving arms during activity, touching peers. Speech aggressive, rapid, loud, inappropriate comments and language frequently used, was asked to be mindful of language, but client did not respond well and continued. Affect congruent to mood, mood irritable, erratic. Thoughts linear, logical, no signs of hallucinations or delusions. Client Response/Progress/Benefit: []Client did not respond well to session, using inappropriate language and aggressive communication and behaviors despite being addressed by therapist. Client participated in the group activity, but she used an aggressive tone and did not take other?s ideas into consideration. Client tried to make group decisions without consulting peers and at times deliberately ignored suggestions from peers. Client was gently challenged by therapist to be more collaborative, but client?s nonverbals indicated resistance and irritability. Client?s behaviors and comments in group to be discussed with treatment team. Client?s progress variable as she continues to report lack of implementation of healthy coping skills and resistance to change.
--- NOTE | 2018-02-05 15:07 | BH.MDN ---
Multi-Disciplinary Note - Note 30-min Individual Time Started:: 12:11 Date: 02/05/18 Time Stopped:: 12:45
--- NOTE | 2018-02-06 13:49 | BH.COMM ---
Communication Note - Communication with Client Communication Note: This therapist met with behavioral health treatment team in order to discuss client current progress in IOP treatment as well as appropriateness of ongoing treatment in IOP program at this time. Treatment team discuss current concerns regarding client ongoing substance use and its impact on her ability to make appropriate gains in IOP level of care as well as impact on ability to manage mental health symptoms and internalize treatment concepts. Given the extent of client current substance use, client is found to be more appropriate for dual diagnosis treatment program at this time. Client has been given referral information for dual diagnosis IOP programs including [facility] outpatient substance use and mental health specific programs. Client indicates understanding reason for referral and noted wanting to follow-up in person with more specific information regarding referral recommendations. Therapist in agreement and will meet with client to discuss discharge planning and aftercare recommendations tomorrow morning, 02/07/2018.
--- NOTE | 2018-02-06 13:55 | BH.COMM_ITS ---
Communication Note - Communication with Client Communication Note: This therapist met with behavioral health treatment team in order to discuss client current progress in IOP treatment as well as appropriateness of ongoing treatment in IOP program at this time. Treatment team discuss current concerns regarding client ongoing substance use and its impact on her ability to make appropriate gains in IOP level of care as well as impact on ability to manage mental health symptoms and internalize treatment concepts. Given the extent of client current substance use, client is found to be more appropriate for dual diagnosis treatment program at this time. Client has been given referral information for dual diagnosis IOP programs including [facility] outpatient substance use and mental health specific programs. Client indicates understanding reason for referral and noted wanting to follow-up in person with more specific information regarding referral recommendations. Therapist in agreement and will meet with client to discuss discharge planning and aftercare recommendations tomorrow morning, 02/07/2018.
--- NOTE | 2018-02-08 15:36 | BH.COMM_ITS ---
Communication Note - Communication with Client Communication Note: Therapist spoke with Client outpatient therapist, Ashley Hall, at [facility] to further discuss concerns regarding the impact of client alcohol use on her ability to make progress towards improving mental health sx, and appropriateness for IOP program. Both therapists collaborated to identify best plan of care for client. Client has reported at least 3 relapse incidents since beginning the IOP program, two of which involved self-harming behaviors, as well as reported to her outpatient appointment intoxicated on 02/01/18. Given the severity of client reported alcohol consumption, recent influx in high risk behaviors while under the influence, and client meeting criteria for Alcohol Use Disorder, Severe, it is recommended that client be referred to an IOP program specializing in Co-Occurring and Dual Diagnosis treatment.
--- NOTE | 2018-03-28 09:28 | BH.DS_ITS ---
Discharge Summary - Demographics Date of Admission:: 01/22/18 Discharge Date: 02/07/18 Presenting Problems at Admission:: Client is 27-year-old female with a history of major depressive disorder, PTSD, anxiety, and borderline personality disorder. She reports to IOP program following referral from outpatient therapist, Ashley Hall at [facility], due to worsening depression, passive SI, and panic attacks. At time of admission client endorses symptoms insistent with depression including erratic sleep, decreased appetite, lack of energy, lack of motivation, hopelessness, worthlessness, and passive thoughts of . Client denies any active suicidal ideations, plan, or intent at time of intake. Client has history of one previous suicide attempt via overdose in 2010. History of self-injurious behaviors via cutting as a means for coping. Client additionally endorses racing thoughts and increased anxiety leading to increased panic attacks. Client reports increased familial stress and use of unhealthy means of coping via daily alcohol consumption at time of admission. Discharge Diagnoses:: Major depressive disorder recurrent severe F 33.2. Anxiety unspecified. PTSD. Borderline personality disorder. Alcohol use disorder. Cannabis use. Nicotine use Reason for Discharge:: Client to discharge from IOP program following recommendation from treatment team and Client outpatient provider regarding concerns associated with Client current alcohol use which has been observed as impeding ability to progress in meeting IOP tx goals and better manage mental health sx. Client currently meets criteria for Alcohol Use Disorder, Severe, AEB Client meeting at least 8/11 criteria. Since beginning IOP program it has been observed and reported that Client current alcohol use has interfered with treatment progress. At this time it has been determined that Client would be more appropriate for a dual diagnosis, substance use specific IOP treatment program. Client has been given referral resources for mental health and substance use specific treatment options in her area including [facility], and [facility]. - Treatment Progress During Treatment & Response: Client progress is limited and mostly inconsistent throughout duration of IOP tx. Client difficulties in maintaining sobriety, ongoing issues with high risk behaviors while under the influence of substances, and lack of motivation were contributing factors in her struggles to make consistent progress towards treatment goals. Client had two cancellations in the 2 weeks she was admitted to the IOP program, one of which client indicated was due to suffering from the after effects of previous alcohol consumption. While in attendance, Client engagement and contribution remained variable. Within the individual treatment setting, Client appeared to be actively engaged in the treatment process and able to identify current barriers to improving client overall mental health and wellness. Client identified the impact of current toxic relationships, self-sabotage behaviors, and use of unhealthy coping mechanisms on her self-esteem, motivation and belief she can improve mental health and well being, as well as ability to function at baseline. Despite high levels of insight regarding how her thoughts, behaviors, and relationships impact mental health, Client struggled significantly in working towards maintaining sobriety, implementing healthy boundaries, and use of emotion regulation and coping skills identified during times of distress or when experiencing urges to drink. When in the group setting, Client engagement and contribution was often inconsistent. She was often able to provide positive feedback and contribute to the group discussion; however, on various other occasions was distracted by her own thoughts or items in the room and would often distract other participants due to such. Additionally, Client often provided feedback that was sarcastic or dismissive of materials and at times would detract from the discussion impacting both her and others ability to retain group information. Issues Still to be Addressed:: Client could benefit from continuing to build healthy skills to stabilize moods and have healthy outlets for her emotions. Client could also benefit from further working to address her use of unhealthy means for coping as well as her tendency to return to toxic relationships. Client could also benefit from identifying and challenging negative self-talk messages. Discharge Recommendations/Instructions:: Client recommended to follow-up with referral to dual diagnosis, substance use specific IOP treatment. Client has been given referral resources for mental health and substance use specific treatment options in her area including [facility], [facility], and [facility]. Client is additionally recommended to continue with outpatient treatment on an individual basis at [facility] with Ashley Hall. Client would benefit from attending AA meetings as well as becoming involved in healthy group extracurricular activities such as yoga, and art class, or a workplace readiness program to aid client in finding healthy distractions and limiting urges to drink. Client denies wanting to pursue substance use specific treatment at this time; however, indicates willingness to continue to follow up with individual outpatient provider and is willing to continue to consider dual diagnosis specific IOP treatment services. Client would additionally benefit from PTSD specific treatment following maintenance of sobriety from substances on a consistent basis. Discharge Handout: Complete Discharge Handout with client on aftercare options and continuity of care.
== END 2018-02-07 14:00 | disposition home or self-care (01) ==
LOC: BHIOP 09:00
PROVIDERS: Visit Provider Psychiatry & Neurology Psychiatry
DX: F33.2 Major depressive disorder, recurrent severe without psychotic features (principal); F41.9 Anxiety disorder, unspecified; F43.10 Post-traumatic stress disorder, unspecified; F60.3 Borderline personality disorder; F10.20 Alcohol dependence, uncomplicated; Z72.0 Tobacco use; F12.90 Cannabis use, unspecified, uncomplicated
CPT/HCPCS: H0035; 90832; 90853